=== PATIENT | male | born 1955 | race Caucasian/White ===

== ENCOUNTER 2017-07-31 06:15 | Emergency (ER) | payer BC ==
[~2017-07-31] VITALS: Ht 180.3 cm; Wt 86.2 kg
[~2017-07-31 06:15] MED LIST: ASPI81CH PO; ASPI81EC PO; ATEN100 PO; ATOR20 PO; Aspirin EC81 MG PO; BISA5EC PO; Bactrim Ds Tab1 EACH PO; CHOL10002 PO; CILO100 PO; CLOP75 PO; FOLI1 PO; GUAI600T33 PO; HYDACE5 PO; HYDMOR2 PO; HYDR1TAB94 PO; ONDA4 PO; OXYACE5T PO; POLY17UD PO; RXHYD5325 PO; THIA100 PO; XARELTO20 MG PO; [UNRECOGNIZED DRUG - CODE]; [UNRECOGNIZED DRUG - CODE] PO; [UNRECOGNIZED DRUG - CODE] PO
[2017-07-31 07:02] LABS: BASOPHILS ABSOLUTE AUTO 0.07 K/mm3 (0.00-0.23); BASOPHILS PERCENT AUTO 1 % (0-2); EOSINOPHILS ABSOLUTE AUTO 0.26 K/mm3 (0.00-0.68); EOSINOPHILS PERCENT AUTO 3 % (0-6); Hemoglobin 14.4 g/dL (13.5-17.5); IMMATURE GRAN ABSOLUTE AUTO 0.09 K/mm3 (0.00-0.10); IMMATURE GRAN PERCENT AUTO 1 % (0-1); LYMPHOCYTES ABSOLUTE AUTO 1.62 K/mm3 (0.84-5.20); LYMPHOCYTES PERCENT AUTO 18 % (21-46); MONOCYTES ABSOLUTE AUTO 0.59 K/mm3 (0.16-1.47); MONOCYTES PERCENT AUTO 7 % (4-13); Mean Corpuscular HGB 34.9 pg (26.0-34.0); Mean Corpuscular HGB Conc 34.3 g/dL (31.5-36.5); Mean Corpuscular Volume 102 fL (80-100); Mean Platelet Volume 8.4 fL (9.1-12.4); NEUTROPHILS ABSOLUTE AUTO 6.24 K/mm3 (1.96-9.15); NEUTROPHILS PERCENT AUTO 70 % (41-73); Platelet Count 317 K/mm3 (150-400); RDW Coefficient Variation 11.7 % (11.7-14.2); RDW Standard Deviation 43.9 fL (35.1-46.3); Red Blood Cell Count 4.13 M/mm3 (4.30-5.90); White Blood Cell Count 8.87 K/mm3 (4.00-11.30)
[2017-07-31 07:45] LABS: Ethanol (Alcohol), Blood, Med 165 mg/dL
[2017-07-31 07:47] LABS: Troponin I <0.015 ng/mL (0.000-0.040)
[2017-07-31 07:53] LABS: Alanine Aminotransfer (ALT/SGP 31 U/L (12-78); Albumin, Blood 3.4 g/dL (3.4-5.0); Albumin/Globulin Ratio 0.9 (0.8-1.8); Alk Phos 92 U/L (50-136); Anion Gap 10 mmol/L (6-16); Aspartate Aminotrans (AST/SGOT 29 U/L (12-37); Bilirubin, Total 0.4 mg/dL (0.1-1.0); Blood Urea Nitrogen 8 mg/dL (8-24); Bun/Creatinine Ratio 10.1 (12.0-20.0); CO2, Blood 25 mmol/L (21-32); Calcium, Blood 8.5 mg/dL (8.5-10.1); Chloride, Blood 100 mmol/L (98-108); Creatinine, Blood 0.79 mg/dL (0.60-1.20); Globulin, Blood 3.7 g/dL (2.2-4.0); Glomerular Filtration Rate >60 (60-); Glucose, Blood 107 mg/dL (70-99); Potassium, Blood 3.4 mmol/L (3.5-5.5); Sodium, Blood 135 mmol/L (136-145); Total Protein, Blood 7.1 g/dL (6.4-8.2)
[2018-01-26] MEDS ORDERED: TRAM50 (13:27)
[2018-06-29] MEDS ORDERED: ALEN70 PO (09:03)
[2018-06-29] MEDS ORDERED: CENTRUM SILVER1 EAC2 PO (09:04)
== END 2017-07-31 08:47 | disposition home or self-care (01) ==
LOC: ER 06:15
PROVIDERS: Emergency Medicine
DX: R07.9 Chest pain, unspecified (principal); F10.10 Alcohol abuse, uncomplicated; I25.2 Old myocardial infarction; E78.00 Pure hypercholesterolemia, unspecified; I48.92 Unspecified atrial flutter; Z90.49 Acquired absence of other specified parts of digestive tract; Z87.891 Personal history of nicotine dependence; Z79.82 Long term (current) use of aspirin; Z79.899 Other long term (current) drug therapy; Y90.6 Blood alcohol level of 120-199 mg/100 ml
CPT/HCPCS: 36415; 71046; 80053; 83690; 84484; 85025; 93005; 93010; 99284; G0480

== ENCOUNTER 2018-02-03 13:05 | Day surgery (SDC) | payer BC ==
[~2018-02-03] VITALS: Ht 180.3 cm; Wt 80.5 kg
[~2018-02-03 13:05] MED LIST changes: +TRAM50
== END 2018-02-03 15:06 | disposition home or self-care (01) ==
LOC: ORSCSDS 13:05
PROVIDERS: Internal Medicine Gastroenterology
PROC: 0DBN8ZX Excision of Sigmoid Colon, Via Natural or Artificial Opening Endoscopic, Diagnostic (ICD-10-PCS; principal; 2018-02-03 14:45)
PROC: 0DBH8ZX Excision of Cecum, Via Natural or Artificial Opening Endoscopic, Diagnostic (ICD-10-PCS; principal; 2018-02-03 14:45)
PROC: 0DBL8ZX Excision of Transverse Colon, Via Natural or Artificial Opening Endoscopic, Diagnostic (ICD-10-PCS; principal; 2018-02-03 14:45)
DX: Z12.11 Encounter for screening for malignant neoplasm of colon (principal); Z86.010 Personal history of colon polyps; D12.3 Benign neoplasm of transverse colon; D12.0 Benign neoplasm of cecum; K63.5 Polyp of colon; K57.30 Diverticulosis of large intestine without perforation or abscess without bleeding; I25.10 Atherosclerotic heart disease of native coronary artery without angina pectoris; I48.92 Unspecified atrial flutter; J44.9 Chronic obstructive pulmonary disease, unspecified; G47.33 Obstructive sleep apnea (adult) (pediatric); Z87.891 Personal history of nicotine dependence; Z79.82 Long term (current) use of aspirin; Z79.899 Other long term (current) drug therapy
CPT/HCPCS: 88305

== ENCOUNTER 2018-07-13 07:05 | Day surgery (SDC) | payer BC ==
[~2018-07-13] VITALS: Ht 180.3 cm; Wt 85.3 kg
[~2018-07-13 07:05] MED LIST changes: +ALEN70 PO; +CENTRUM SILVER1 EAC2 PO
--- NOTE | 2018-07-13 10:22 | NUR ---
INTO STEP VIA [facility]. ABDOMINAL DRESSING C/D/I. ABDOMINAL BINDER PLACED. PT REPORTS 3/10 INCISIONAL PAIN. SATS TRENDING 90-93%. ENCOURAGED COUGHING AND DEEP BREATHING-SATS TRENDING 93-95% ON RA. KHUSHBU INITIATED.
--- NOTE | 2018-07-13 11:09 | NUR ---
Patient up to Ambulate independently. Gait steady. Dressing to procedure site clean, dry, intact with no visible drainage, swelling, erythema or bruising noted. Discharge instructions reviewed with patient. Patient verbalizes understanding. Copy given to patient to take home. Discharged via wheelchair to private car for ride home.
== END 2018-07-13 11:10 | disposition home or self-care (01) ==
LOC: ORSCMMR 07:05 → ORD 08:45 → ORSCMMR 11:10
PROVIDERS: Surgery
PROC: 0WQF0ZZ Repair Abdominal Wall, Open Approach (ICD-10-PCS; principal; 2018-07-13 08:45)
DX: K42.9 Umbilical hernia without obstruction or gangrene (principal); I25.10 Atherosclerotic heart disease of native coronary artery without angina pectoris; Z79.82 Long term (current) use of aspirin
CPT/HCPCS: J0690; J1100; J1885; J2405; J2710; J3010; J7120

== ENCOUNTER 2019-04-07 12:18 | Observation (INO) | payer BC ==
[~2019-04-07] VITALS: Ht 180.3 cm; Wt 87.4 kg
[~2019-04-07 12:18] MED LIST changes: -AMOCLA875 PO; -Advil200 M1 PO; -VANCOMYCIN HCL1.5 GM IV
--- NOTE | 2019-04-07 17:24 | NUR ---
PT DIRECT ADMIT FROM [place]. A&O X4 AND INDEPENDENT FOR ADL'S. PRN NORCO ADMINISTERED FOR LEFT ARM PAIN D/T CELLULITIS. DENIES N/V. CALL LIGHT IN REACH.
[2019-04-08 05:36] LABS: BASOPHILS ABSOLUTE AUTO 0.06 K/mm3 (0.00-0.23); BASOPHILS PERCENT AUTO 0 % (0-2); EOSINOPHILS ABSOLUTE AUTO 0.21 K/mm3 (0.00-0.68); EOSINOPHILS PERCENT AUTO 1 % (0-6); Hematocrit 38.6 % (37.0-53.0); Hemoglobin 13.4 g/dL (13.5-17.5); IMMATURE GRAN ABSOLUTE AUTO 0.11 K/mm3 (0.00-0.10); IMMATURE GRAN PERCENT AUTO 1 % (0-1); LYMPHOCYTES PERCENT AUTO 8 % (21-46); MONOCYTES ABSOLUTE AUTO 1.21 K/mm3 (0.16-1.47); MONOCYTES PERCENT AUTO 8 % (4-13); Mean Corpuscular HGB 36.4 pg (26.0-34.0); Mean Corpuscular HGB Conc 34.7 g/dL (31.5-36.5); Mean Corpuscular Volume 105 fL (80-100); Mean Platelet Volume 9.3 fL (9.1-12.4); NEUTROPHILS ABSOLUTE AUTO 11.87 K/mm3 (1.96-9.15); NEUTROPHILS PERCENT AUTO 81 % (41-73); Platelet Count 225 K/mm3 (150-400); RDW Coefficient Variation 11.5 % (11.7-14.2); RDW Standard Deviation 44.1 fL (35.1-46.3); Red Blood Cell Count 3.68 M/mm3 (4.30-5.90); White Blood Cell Count 14.66 K/mm3 (4.00-11.30)
[2019-04-08 06:09] LABS: Alanine Aminotransfer (ALT/SGP 50 U/L (12-78); Albumin, Blood 2.9 g/dL (3.4-5.0); Albumin/Globulin Ratio 0.7 (0.8-1.8); Alk Phos 81 U/L (50-136); Anion Gap 7 mmol/L (6-16); Aspartate Aminotrans (AST/SGOT 24 U/L (12-37); Bilirubin, Total 0.9 mg/dL (0.1-1.0); Blood Urea Nitrogen 17 mg/dL (8-24); Bun/Creatinine Ratio 19.5 (12.0-20.0); CO2, Blood 23 mmol/L (21-32); Calcium, Blood 8.5 mg/dL (8.5-10.1); Chloride, Blood 101 mmol/L (98-108); Creatinine, Blood 0.87 mg/dL (0.60-1.20); Globulin, Blood 3.9 g/dL (2.2-4.0); Glomerular Filtration Rate >60 (60-); Glucose, Blood 99 mg/dL (70-99); Potassium, Blood 3.7 mmol/L (3.5-5.5); Sodium, Blood 131 mmol/L (136-145); Total Protein, Blood 6.8 g/dL (6.4-8.2)
--- NOTE | 2019-04-08 17:29 | NUR ---
PT A&O X4 AND INDEPENDENT FOR ADL'S. PT REFUSED SHOWER TODAY. LEFT ARM SWELLING/REDNESS DECREASED SINCE YESTERDAY. NOTED ELEVATED BP, PRN TORADOL ADMINISTERED FOR LEFT ARM PAIN AND BP DECREASED TO WNL. PT DENIES N/V. CALL LIGHT IN REACH.
--- NOTE | 2019-04-09 03:53 | NUR ---
SHIFT SUMMARY PT ARM SWELLING IS NOTED TO BE IMPROVED. PT REPORTS THE UNDERSIDE OF HIS ARM IS WHAT IS CAUSING DISCOMFORT. TORADOL CONTINUES TO REDUCE PAIN. PT HAD NO ISSUES OR EVENTS THIS SHIFT. PT CURRENTLY SLEEPING AND COMFORTABLE. PT HAS SLEPT BETTER THIS SHIFT. PT CURRENTLY SLEEPING AND BREATHING EASY. CALL LIGHT IN REACH.
[2019-04-09 06:29] LABS: BASOPHILS ABSOLUTE AUTO 0.06 K/mm3 (0.00-0.23); BASOPHILS PERCENT AUTO 1 % (0-2); EOSINOPHILS ABSOLUTE AUTO 0.24 K/mm3 (0.00-0.68); EOSINOPHILS PERCENT AUTO 2 % (0-6); Hematocrit 35.9 % (37.0-53.0); Hemoglobin 12.8 g/dL (13.5-17.5); IMMATURE GRAN ABSOLUTE AUTO 0.11 K/mm3 (0.00-0.10); IMMATURE GRAN PERCENT AUTO 1 % (0-1); LYMPHOCYTES ABSOLUTE AUTO 1.26 K/mm3 (0.84-5.20); LYMPHOCYTES PERCENT AUTO 10 % (21-46); MONOCYTES ABSOLUTE AUTO 1.09 K/mm3 (0.16-1.47); MONOCYTES PERCENT AUTO 9 % (4-13); Mean Corpuscular HGB 36.7 pg (26.0-34.0); Mean Corpuscular HGB Conc 35.7 g/dL (31.5-36.5); Mean Corpuscular Volume 103 fL (80-100); Mean Platelet Volume 9.4 fL (9.1-12.4); NEUTROPHILS ABSOLUTE AUTO 10.08 K/mm3 (1.96-9.15); NEUTROPHILS PERCENT AUTO 78 % (41-73); Platelet Count 248 K/mm3 (150-400); RDW Coefficient Variation 11.4 % (11.7-14.2); RDW Standard Deviation 42.8 fL (35.1-46.3); Red Blood Cell Count 3.49 M/mm3 (4.30-5.90); White Blood Cell Count 12.84 K/mm3 (4.00-11.30)
[2019-04-09 06:39] LABS: Anion Gap 7 mmol/L (6-16); Blood Urea Nitrogen 14 mg/dL (8-24); Bun/Creatinine Ratio 15.3 (12.0-20.0); CO2, Blood 23 mmol/L (21-32); Calcium, Blood 8.4 mg/dL (8.5-10.1); Chloride, Blood 103 mmol/L (98-108); Creatinine, Blood 0.92 mg/dL (0.60-1.20); Glomerular Filtration Rate >60 (60-); Glucose, Blood 103 mg/dL (70-99); Potassium, Blood 3.6 mmol/L (3.5-5.5); Sodium, Blood 133 mmol/L (136-145)
[2019-04-09] MEDS ORDERED: HYDR1TAB94 PO ×2 (09:12)
[2019-04-09] MEDS ORDERED: AMOCLA875 PO ×2 (09:13)
[2019-04-09] MEDS ORDERED: Advil200 M1 PO ×2 (09:13)
[2019-04-09] MEDS ORDERED: VANCOMYCIN HCL1.5 GM IV ×2 (09:15)
--- NOTE | 2019-04-09 12:17 | NUR ---
SHIFT SUMMARY PT IS A&O, INDEPENDENT IN RM TO BTHRM. ADMITTED FOR L ARM CELLULITIS; REEDNESS AND SWELLING MUCH IMPROVED. DR REICH IN TO SEE PT THIS AM. D/C ORDERS PLACED. PT TO GO TO [facility] FOR CONTINUED IV OUTPT ABX; FIRST 2 APPOINTMENTS MADE. LEAH POWER GLIDE LEFT IN; SL. ANDRES HOSE REMOVED AT D/C. PT REPORTED THAT PAIN WAS GONE IN L ARM, "JUST UNCOMFORTABLE NOW". DECLINED PAIN MEDICATION. REPORTED THAT IBPROFEN WOULD BE FINE. D/C INSTRUCTIONS GIVEN. PT VERBALIZED UNDERSTANDING. PT ASSISTED OUT FRONT, VIA W/C, TO SON WAITING.
== END 2019-04-09 10:54 | disposition home or self-care (01) ==
LOC: MEDS 12:18 → ENPENDDIS 04-09 08:30 → MEDS 04-09 10:54
PROVIDERS: ADMIT Family Medicine
DX: M70.22 Olecranon bursitis, left elbow (principal); I10 Essential (primary) hypertension; J44.9 Chronic obstructive pulmonary disease, unspecified; I25.10 Atherosclerotic heart disease of native coronary artery without angina pectoris; I73.9 Peripheral vascular disease, unspecified; E55.9 Vitamin D deficiency, unspecified; F17.200 Nicotine dependence, unspecified, uncomplicated; Z95.5 Presence of coronary angioplasty implant and graft; Z79.899 Other long term (current) drug therapy; Z79.82 Long term (current) use of aspirin
CPT/HCPCS: 36415; 80048; 80053; 80202; 85025; 87040; 93971; 94640; 94760; 96365; 96366; 96367; 96372; 96375; 96376; A9270-GY; C1751; G0378; J1650; J1885; J2543; J3370; J7040; J7050

== ENCOUNTER → 2019-04-07 | Outpatient (CLI) | payer BC ==
[~2019-04-07] MED LIST changes: +AMOCLA875 PO; +Advil200 M1 PO; +VANCOMYCIN HCL1.5 GM IV
[2019-04-07 09:56] LABS: BASOPHILS ABSOLUTE AUTO 0.05 K/mm3 (0.00-0.23); BASOPHILS PERCENT AUTO 0 % (0-2); EOSINOPHILS ABSOLUTE AUTO 0.12 K/mm3 (0.00-0.68); EOSINOPHILS PERCENT AUTO 1 % (0-6); Hematocrit 39.1 % (37.0-53.0); Hemoglobin 14.3 g/dL (13.5-17.5); IMMATURE GRAN ABSOLUTE AUTO 0.15 K/mm3 (0.00-0.10); IMMATURE GRAN PERCENT AUTO 1 % (0-1); LYMPHOCYTES ABSOLUTE AUTO 1.39 K/mm3 (0.84-5.20); LYMPHOCYTES PERCENT AUTO 7 % (21-46); MONOCYTES ABSOLUTE AUTO 1.62 K/mm3 (0.16-1.47); MONOCYTES PERCENT AUTO 8 % (4-13); Mean Corpuscular HGB 37.6 pg (26.0-34.0); Mean Corpuscular HGB Conc 36.6 g/dL (31.5-36.5); Mean Corpuscular Volume 103 fL (80-100); Mean Platelet Volume 11.2 fL (9.1-12.4); NEUTROPHILS ABSOLUTE AUTO 17.33 K/mm3 (1.96-9.15); NEUTROPHILS PERCENT AUTO 84 % (41-73); Platelet Count 249 K/mm3 (150-400); RDW Coefficient Variation 11.8 % (11.7-14.2); RDW Standard Deviation 43.9 fL (35.1-46.3); White Blood Cell Count 20.66 K/mm3 (4.00-11.30)
[2019-04-07 10:37] LABS: Alanine Aminotransfer (ALT/SGP 49 U/L (12-78); Albumin, Blood 3.2 g/dL (3.4-5.0); Albumin/Globulin Ratio 0.8 (0.8-1.8); Alk Phos 84 U/L (40-126); Anion Gap 12 mmol/L (6-16); Aspartate Aminotrans (AST/SGOT 22 U/L (12-37); Bilirubin, Total 1.1 mg/dL (0.1-1.0); Blood Urea Nitrogen 11 mg/dL (8-24); Bun/Creatinine Ratio 12.1 (12.0-20.0); CO2, Blood 21 mmol/L (21-32); Calcium, Blood 8.6 mg/dL (8.5-10.1); Chloride, Blood 96 mmol/L (98-108); Creatinine, Blood 0.91 mg/dL (0.60-1.20); Globulin, Blood 4.2 g/dL (2.2-4.0); Glomerular Filtration Rate >60 (60-); Glucose, Blood 108 mg/dL (70-99); Sodium, Blood 129 mmol/L (136-145); Total Protein, Blood 7.4 g/dL (6.4-8.2)
== END ==
LOC: LAB SHORT 09:48 → LAB EV 09:48
PROVIDERS: Emergency Medicine
DX: L03.114 Cellulitis of left upper limb (principal)
CPT/HCPCS: 80053; 85025; 87040

== ENCOUNTER 2019-04-10 00:25 | Day surgery (SDC) | payer BC ==
[~2019-04-10 00:25] MED LIST changes: +AMOCLA875 PO; +Advil200 M1 PO; +VANCOMYCIN HCL1.5 GM IV
== END 2019-04-10 17:47 | disposition home or self-care (01) ==
LOC: ATC 00:25
DX: M70.22 Olecranon bursitis, left elbow (principal); L03.114 Cellulitis of left upper limb; J44.9 Chronic obstructive pulmonary disease, unspecified; Z95.5 Presence of coronary angioplasty implant and graft; I25.10 Atherosclerotic heart disease of native coronary artery without angina pectoris; F17.200 Nicotine dependence, unspecified, uncomplicated; Z79.82 Long term (current) use of aspirin; Z79.899 Other long term (current) drug therapy
CPT/HCPCS: 96365; J3370; J7050

== ENCOUNTER 2019-04-11 00:34 | Day surgery (SDC) | payer BC ==
[2019-04-11 16:30] LABS: Creatinine, Blood 0.84 mg/dL (0.60-1.20); Vancomycin, Trough 5.5 ug/mL (5.0-10.0)
== END 2019-04-11 17:10 | disposition home or self-care (01) ==
LOC: ATC 00:34
PROVIDERS: Internal Medicine Gastroenterology
DX: M70.22 Olecranon bursitis, left elbow (principal); L03.114 Cellulitis of left upper limb; I10 Essential (primary) hypertension; J44.9 Chronic obstructive pulmonary disease, unspecified; I25.10 Atherosclerotic heart disease of native coronary artery without angina pectoris; I73.9 Peripheral vascular disease, unspecified; F17.200 Nicotine dependence, unspecified, uncomplicated; Z79.899 Other long term (current) drug therapy; Z79.82 Long term (current) use of aspirin
CPT/HCPCS: 80202; 82565; 96365; J3370; J7050

== ENCOUNTER 2019-04-12 07:55 | Day surgery (SDC) | payer BC | END 2019-04-12 16:32 | disposition home or self-care (01) | LOC: ATC 07:55 | DX: M70.22 Olecranon bursitis, left elbow (principal); I10 Essential (primary) hypertension; J44.9 Chronic obstructive pulmonary disease, unspecified; I25.10 Atherosclerotic heart disease of native coronary artery without angina pectoris; F17.200 Nicotine dependence, unspecified, uncomplicated; Z79.899 Other long term (current) drug therapy; Z79.82 Long term (current) use of aspirin | CPT/HCPCS: 96365; J3370 ==

== ENCOUNTER 2019-04-13 00:01 | Day surgery (SDC) | payer BC | END 2019-04-13 16:10 | disposition home or self-care (01) | LOC: ATC 00:01 | DX: M70.22 Olecranon bursitis, left elbow (principal); I10 Essential (primary) hypertension; J44.9 Chronic obstructive pulmonary disease, unspecified; I25.10 Atherosclerotic heart disease of native coronary artery without angina pectoris; F17.200 Nicotine dependence, unspecified, uncomplicated; Z79.899 Other long term (current) drug therapy; Z79.82 Long term (current) use of aspirin | CPT/HCPCS: 96365; J3370 ==

== ENCOUNTER 2019-04-14 | Day surgery (SDC) | payer BC ==
[2019-04-14 08:40] LABS: Vancomycin, Trough 10.2 ug/mL (5.0-10.0)
== END 2019-04-14 16:17 | disposition home or self-care (01) ==
LOC: ATC
PROVIDERS: Family Medicine
DX: M70.22 Olecranon bursitis, left elbow (principal); J44.9 Chronic obstructive pulmonary disease, unspecified; M10.9 Gout, unspecified; F17.200 Nicotine dependence, unspecified, uncomplicated; I25.10 Atherosclerotic heart disease of native coronary artery without angina pectoris; I10 Essential (primary) hypertension; Z79.82 Long term (current) use of aspirin; Z79.899 Other long term (current) drug therapy
CPT/HCPCS: 36415; 80202; 82565; 96365; J3370

== ENCOUNTER 2019-04-15 00:01 | Day surgery (SDC) | payer BC | END 2019-04-15 16:25 | disposition home or self-care (01) | LOC: ATC 00:01 | DX: M70.22 Olecranon bursitis, left elbow (principal); I10 Essential (primary) hypertension; I25.10 Atherosclerotic heart disease of native coronary artery without angina pectoris; I73.9 Peripheral vascular disease, unspecified; J44.9 Chronic obstructive pulmonary disease, unspecified; F17.200 Nicotine dependence, unspecified, uncomplicated; Z79.899 Other long term (current) drug therapy; Z79.82 Long term (current) use of aspirin | CPT/HCPCS: 96365; J3370 ==

== ENCOUNTER 2019-04-16 07:33 | Day surgery (SDC) | payer BC | END 2019-04-16 09:05 | disposition home or self-care (01) | LOC: ATC 07:33 | DX: M70.22 Olecranon bursitis, left elbow (principal); I25.10 Atherosclerotic heart disease of native coronary artery without angina pectoris; F17.200 Nicotine dependence, unspecified, uncomplicated; J44.9 Chronic obstructive pulmonary disease, unspecified; I10 Essential (primary) hypertension; M10.9 Gout, unspecified; M81.0 Age-related osteoporosis without current pathological fracture; Z79.82 Long term (current) use of aspirin; Z95.5 Presence of coronary angioplasty implant and graft; Z98.890 Other specified postprocedural states | CPT/HCPCS: 96365; J3370 ==

== ENCOUNTER 2019-04-17 00:56 | Day surgery (SDC) | payer BC | END 2019-04-17 16:19 | disposition home or self-care (01) | LOC: ATC 00:56 | DX: M70.22 Olecranon bursitis, left elbow (principal); I25.10 Atherosclerotic heart disease of native coronary artery without angina pectoris; I10 Essential (primary) hypertension; M10.9 Gout, unspecified; J44.9 Chronic obstructive pulmonary disease, unspecified; M81.0 Age-related osteoporosis without current pathological fracture; F17.200 Nicotine dependence, unspecified, uncomplicated; Z95.1 Presence of aortocoronary bypass graft; Z79.82 Long term (current) use of aspirin | CPT/HCPCS: 96365; J3370 ==

== ENCOUNTER 2019-04-18 00:58 | Day surgery (SDC) | payer BC ==
[2019-04-18 08:22] LABS: Creatinine, Blood 0.83 mg/dL (0.60-1.20); Vancomycin, Trough 14.1 ug/mL (5.0-10.0)
[2019-04-18 08:30] LABS: Creatinine, Blood 0.81 mg/dL (0.60-1.20); Vancomycin, Trough 13.9 ug/mL (5.0-10.0)
== END 2019-04-18 22:38 | disposition home or self-care (01) ==
LOC: ATC 00:58
PROVIDERS: Family Medicine
DX: M70.22 Olecranon bursitis, left elbow (principal); I25.10 Atherosclerotic heart disease of native coronary artery without angina pectoris; J44.9 Chronic obstructive pulmonary disease, unspecified; I10 Essential (primary) hypertension; M10.9 Gout, unspecified; M81.0 Age-related osteoporosis without current pathological fracture; F17.200 Nicotine dependence, unspecified, uncomplicated; Z95.5 Presence of coronary angioplasty implant and graft; Z79.82 Long term (current) use of aspirin
CPT/HCPCS: 80202; 82565; 96365; J3370

== ENCOUNTER 2019-04-19 00:39 | Day surgery (SDC) | payer BC | END 2019-04-19 16:06 | disposition home or self-care (01) | LOC: ATC 00:39 | DX: M70.22 Olecranon bursitis, left elbow (principal); I25.10 Atherosclerotic heart disease of native coronary artery without angina pectoris; J44.9 Chronic obstructive pulmonary disease, unspecified; I10 Essential (primary) hypertension; M10.9 Gout, unspecified; F17.200 Nicotine dependence, unspecified, uncomplicated; M81.0 Age-related osteoporosis without current pathological fracture; Z95.5 Presence of coronary angioplasty implant and graft; Z79.82 Long term (current) use of aspirin | CPT/HCPCS: 96365; J3370 ==

== ENCOUNTER 2019-04-20 00:04 | Day surgery (SDC) | payer BC ==
--- NOTE | 2019-04-20 07:47 | NUR ---
IV PRESENT ON RFA. DRESSING C/D/I. ORANGE CAPS IN PLACE. FLUSHED WNL.
== END 2019-04-20 16:35 | disposition home or self-care (01) ==
LOC: ATC 00:04
DX: M70.22 Olecranon bursitis, left elbow (principal); J44.9 Chronic obstructive pulmonary disease, unspecified; I25.10 Atherosclerotic heart disease of native coronary artery without angina pectoris; I10 Essential (primary) hypertension; M10.9 Gout, unspecified; M81.0 Age-related osteoporosis without current pathological fracture; F17.200 Nicotine dependence, unspecified, uncomplicated; Z95.5 Presence of coronary angioplasty implant and graft; Z79.82 Long term (current) use of aspirin
CPT/HCPCS: 96365; J3370

== ENCOUNTER 2019-04-21 00:36 | Day surgery (SDC) | payer BC ==
[2019-04-21 08:27] LABS: Creatinine, Blood 0.95 mg/dL (0.60-1.20); Vancomycin, Trough 15.2 ug/mL (5.0-10.0)
== END 2019-04-21 16:43 | disposition home or self-care (01) ==
LOC: ATC 00:36
PROVIDERS: Family Medicine
DX: M70.22 Olecranon bursitis, left elbow (principal); L03.114 Cellulitis of left upper limb; I10 Essential (primary) hypertension; J44.9 Chronic obstructive pulmonary disease, unspecified; I25.10 Atherosclerotic heart disease of native coronary artery without angina pectoris; F17.200 Nicotine dependence, unspecified, uncomplicated; Z95.5 Presence of coronary angioplasty implant and graft; Z79.899 Other long term (current) drug therapy; Z79.82 Long term (current) use of aspirin
CPT/HCPCS: 80202; 82565; 96365; 96367; J3370

== ENCOUNTER 2019-04-22 00:28 | Day surgery (SDC) | payer BC | END 2019-04-22 17:01 | disposition home or self-care (01) | LOC: ATC 00:28 | DX: M70.22 Olecranon bursitis, left elbow (principal); L03.114 Cellulitis of left upper limb; J44.9 Chronic obstructive pulmonary disease, unspecified; I25.10 Atherosclerotic heart disease of native coronary artery without angina pectoris; I73.9 Peripheral vascular disease, unspecified; F17.200 Nicotine dependence, unspecified, uncomplicated; Z79.899 Other long term (current) drug therapy; Z79.82 Long term (current) use of aspirin | CPT/HCPCS: 96365; J3370 ==

== ENCOUNTER 2019-04-23 07:07 | Day surgery (SDC) | payer BC | END 2019-04-23 15:45 | disposition home or self-care (01) | LOC: ATC 07:07 | DX: M70.22 Olecranon bursitis, left elbow (principal); J44.9 Chronic obstructive pulmonary disease, unspecified; I25.10 Atherosclerotic heart disease of native coronary artery without angina pectoris; I10 Essential (primary) hypertension; M10.9 Gout, unspecified; M81.0 Age-related osteoporosis without current pathological fracture; F17.200 Nicotine dependence, unspecified, uncomplicated; Z95.5 Presence of coronary angioplasty implant and graft; Z79.82 Long term (current) use of aspirin; Z79.899 Other long term (current) drug therapy | CPT/HCPCS: 96365; J3370 ==

== ENCOUNTER 2019-05-25 08:07 | Day surgery (SDC) | payer BC ==
[~2019-05-25] VITALS: Ht 182.9 cm; Wt 89.9 kg
== END 2019-05-25 10:05 | disposition home or self-care (01) ==
LOC: ORSCSDS 08:07
PROVIDERS: Internal Medicine Gastroenterology
PROC: 0DBN8ZX Excision of Sigmoid Colon, Via Natural or Artificial Opening Endoscopic, Diagnostic (ICD-10-PCS; principal; 2019-05-25 09:30)
DX: Z12.11 Encounter for screening for malignant neoplasm of colon (principal); Z86.010 Personal history of colon polyps; D12.5 Benign neoplasm of sigmoid colon; K57.30 Diverticulosis of large intestine without perforation or abscess without bleeding; I25.2 Old myocardial infarction; G47.33 Obstructive sleep apnea (adult) (pediatric); Z79.82 Long term (current) use of aspirin
CPT/HCPCS: 88305; J2704

== ENCOUNTER 2020-10-27 10:28 | Emergency (ER) | payer BC ==
[~2020-10-27] VITALS: Ht 180.3 cm; Wt 88.5 kg
[2020-10-27] MEDS ORDERED: XARELTO20 M1 PO (10:50)
[2020-10-27] MEDS ORDERED: CARVEDILOL6.25 MG PO (10:50)
[2020-10-27 11:15] LABS: BASOPHILS ABSOLUTE AUTO 0.05 K/mm3 (0.00-0.23); BASOPHILS PERCENT AUTO 1 % (0-2); EOSINOPHILS ABSOLUTE AUTO 0.23 K/mm3 (0.00-0.68); EOSINOPHILS PERCENT AUTO 4 % (0-6); Hematocrit 43.5 % (37.0-53.0); Hemoglobin 15.3 g/dL (13.5-17.5); IMMATURE GRAN ABSOLUTE AUTO 0.04 K/mm3 (0.00-0.10); IMMATURE GRAN PERCENT AUTO 1 % (0-1); LYMPHOCYTES ABSOLUTE AUTO 1.61 K/mm3 (0.84-5.20); LYMPHOCYTES PERCENT AUTO 26 % (21-46); MONOCYTES ABSOLUTE AUTO 0.41 K/mm3 (0.16-1.47); MONOCYTES PERCENT AUTO 7 % (4-13); Mean Corpuscular HGB 35.5 pg (26.0-34.0); Mean Corpuscular HGB Conc 35.2 g/dL (31.5-36.5); Mean Corpuscular Volume 101 fL (80-100); Mean Platelet Volume 9.3 fL (9.1-12.4); NEUTROPHILS ABSOLUTE AUTO 3.98 K/mm3 (1.96-9.15); NEUTROPHILS PERCENT AUTO 63 % (41-73); Platelet Count 190 K/mm3 (150-400); RDW Coefficient Variation 11.9 % (11.7-14.2); RDW Standard Deviation 44.1 fL (35.1-46.3); Red Blood Cell Count 4.31 M/mm3 (4.30-5.90); White Blood Cell Count 6.32 K/mm3 (4.00-11.30)
[2020-10-27 11:33] LABS: Alanine Aminotransfer (ALT/SGP 79 U/L (12-78); Albumin, Blood 3.6 g/dL (3.4-5.0); Alk Phos 75 U/L (50-136); Anion Gap 11 mmol/L (6-16); Aspartate Aminotrans (AST/SGOT 50 U/L (12-37); Bilirubin, Total 0.5 mg/dL (0.1-1.0); Blood Urea Nitrogen 10 mg/dL (8-24); CO2, Blood 20 mmol/L (21-32); Calcium, Blood 8.2 mg/dL (8.5-10.1); Chloride, Blood 107 mmol/L (98-108); Creatinine, Blood 0.83 mg/dL (0.60-1.20); Globulin, Blood 3.5 g/dL (2.2-4.0); Glomerular Filtration Rate >60 (60-); Glucose, Blood 128 mg/dL (70-99); Potassium, Blood 3.9 mmol/L (3.5-5.5); Sodium, Blood 138 mmol/L (136-145); Total Protein, Blood 7.1 g/dL (6.4-8.2); Troponin I <0.015 ng/mL (0.000-0.040)
== END 2020-10-27 14:55 | disposition home or self-care (01) ==
LOC: ER 10:28
PROVIDERS: Emergency Medicine
DX: R07.9 Chest pain, unspecified (principal); I25.2 Old myocardial infarction; I10 Essential (primary) hypertension; E78.00 Pure hypercholesterolemia, unspecified; Z79.899 Other long term (current) drug therapy; Z87.891 Personal history of nicotine dependence
CPT/HCPCS: 71045; 71275; 80053; 84484; 85025; 93005; 93010; 99285-25; Q9967

== ENCOUNTER 2020-11-20 11:08 | Day surgery (SDC) | payer BC ==
[~2020-11-20 11:08] MED LIST changes: +CARVEDILOL6.25 MG PO; +XARELTO20 M1 PO
[2020-11-20] MEDS ORDERED: Aspir 8181 MG PO (12:07)
--- NOTE | 2020-11-20 12:08 | NUR ---
PT IN PROCEDURE ROOM FOR CARDIOVERSION, 20G IV R AC W NS TKO, DR MEADE PRESENT FOR ANESTHESIA, DR MACIEL PRESENT, SHOCKED 200J X 1 SUCCESSFULLY, PT WAKING UP NOW AND [place] PROCEDURE WELL, MEDS/ALLERGIES REVIEWED W PT PRIOR WITH DR MEADE, DR MACIEL TO CALL W PLAN OF CARE
--- NOTE | 2020-11-20 13:01 | NUR ---
PT IV DC'D INTACT, PT DRESSED, CALLED, PT DC'D BY [place] W DRIVING PT HOME
== END 2020-11-20 22:57 | disposition home or self-care (01) ==
LOC: PRC 11:08 → MHTC 11:08 → PRC 22:57
DX: I48.92 Unspecified atrial flutter (principal); I48.91 Unspecified atrial fibrillation
CPT/HCPCS: 92960; 93005; 93010; J2704; J7030

== ENCOUNTER 2021-01-17 11:51 | Inpatient (IN) | payer BC, MEDICARE ==
[~2021-01-17] VITALS: Ht 182.9 cm; Wt 91.3 kg
[~2021-01-17 11:51] MED LIST changes: +Aspir 8181 MG PO
[2021-01-17] MEDS ORDERED: ATOR40TA PO (12:09)
[2021-01-17 12:30] LABS: BASOPHILS ABSOLUTE AUTO 0.07 K/mm3 (0.00-0.23); BASOPHILS PERCENT AUTO 1 % (0-2); EOSINOPHILS ABSOLUTE AUTO 0.21 K/mm3 (0.00-0.68); EOSINOPHILS PERCENT AUTO 2 % (0-6); Hematocrit 43.8 % (37.0-53.0); Hemoglobin 15.4 g/dL (13.5-17.5); IMMATURE GRAN ABSOLUTE AUTO 0.06 K/mm3 (0.00-0.10); IMMATURE GRAN PERCENT AUTO 1 % (0-1); LYMPHOCYTES ABSOLUTE AUTO 1.85 K/mm3 (0.84-5.20); LYMPHOCYTES PERCENT AUTO 19 % (21-46); MONOCYTES PERCENT AUTO 7 % (4-13); Mean Corpuscular HGB 35.9 pg (26.0-34.0); Mean Corpuscular HGB Conc 35.2 g/dL (31.5-36.5); Mean Corpuscular Volume 102 fL (80-100); Mean Platelet Volume 9.3 fL (9.1-12.4); NEUTROPHILS ABSOLUTE AUTO 6.86 K/mm3 (1.96-9.15); NEUTROPHILS PERCENT AUTO 70 % (41-73); Platelet Count 235 K/mm3 (150-400); RDW Coefficient Variation 11.7 % (11.7-14.2); RDW Standard Deviation 43.8 fL (35.1-46.3); Red Blood Cell Count 4.29 M/mm3 (4.30-5.90); White Blood Cell Count 9.75 K/mm3 (4.00-11.30)
[2021-01-17 12:51] LABS: Alanine Aminotransfer (ALT/SGP 62 U/L (12-78); Albumin, Blood 4.1 g/dL (3.4-5.0); Albumin/Globulin Ratio 1.1 (0.8-1.8); Alk Phos 80 U/L (50-136); Anion Gap 8 mmol/L (6-16); Aspartate Aminotrans (AST/SGOT 43 U/L (12-37); Bilirubin, Total 0.9 mg/dL (0.1-1.0); Blood Urea Nitrogen 11 mg/dL (8-24); Bun/Creatinine Ratio 13.1 (12.0-20.0); CO2, Blood 23 mmol/L (21-32); Calcium, Blood 8.9 mg/dL (8.5-10.1); Chloride, Blood 105 mmol/L (98-108); Creatinine, Blood 0.84 mg/dL (0.60-1.20); Globulin, Blood 3.6 g/dL (2.2-4.0); Glomerular Filtration Rate >60 (60-); Glucose, Blood 100 mg/dL (70-99); Potassium, Blood 4.5 mmol/L (3.5-5.5); Sodium, Blood 136 mmol/L (136-145); Total Protein, Blood 7.7 g/dL (6.4-8.2); Troponin I <0.015 ng/mL (0.000-0.040)
[2021-01-17] MEDS ORDERED: Chantix1 MG PO (16:12)
[2021-01-17 16:39] LABS: International Normalized Ratio 1.02
--- NOTE | 2021-01-17 17:45 | NUR ---
PATIENT IS ALERT AND ORIENTED AND COOPERATIVE WITH CARE. HE TRANSFERRED 1PA FROM THE WHEELCHAIR TO THE BED ON ADMIT. HE CAN MOVE HIS RIGHT EXTREMITITES AND HAS STRENGTH BUT LACKS CONTROL AND SENSATION. USES A URINAL SITTING IN BED. HE IS AND LIVES AT HOME WITH HIS . THE PATIENT SAID HE WILL ASK HIS TO BRING IN HIS ADVANCE DIRECTIVE. ON RA. NO C/O PAIN. WILL CONTINUE TO MONITOR
--- NOTE | 2021-01-18 04:37 | NUR ---
GRADER MARKER SUMMARY PT AAOX4 AND PLEASANT. STILL WITH SOME SLIGHT R SIDED DEFECITS. PT HAS FAIRLY GOOD STRENGTH BUT DOES HAVE SOME TROUBLE WITH FINE MOTOR MOVEMENTS OF HANDS/FINGERS ON THE R SIDE. PT TO HAVE MRI THIS AM, PT DOES REPORT HAVING MULTIPLE METAL RODS IN HIS BACK WELL AN ARITIFICIAL HIP. CONSULT FOR DR FIGUEROA HAS BEEN CALLED IN TO ANSWERING SERVICE. PERMISSIVE HTN UP TO [address] HUNT, PT SBP 170-180'S TONIGHT. WILL CONTINUE TO MONITOR.
[2021-01-18 05:19] LABS: BASOPHILS ABSOLUTE AUTO 0.05 K/mm3 (0.00-0.23); BASOPHILS PERCENT AUTO 1 % (0-2); EOSINOPHILS ABSOLUTE AUTO 0.23 K/mm3 (0.00-0.68); EOSINOPHILS PERCENT AUTO 3 % (0-6); Hemoglobin 13.9 g/dL (13.5-17.5); IMMATURE GRAN ABSOLUTE AUTO 0.05 K/mm3 (0.00-0.10); IMMATURE GRAN PERCENT AUTO 1 % (0-1); LYMPHOCYTES ABSOLUTE AUTO 1.98 K/mm3 (0.84-5.20); LYMPHOCYTES PERCENT AUTO 21 % (21-46); MONOCYTES ABSOLUTE AUTO 0.64 K/mm3 (0.16-1.47); MONOCYTES PERCENT AUTO 7 % (4-13); Mean Corpuscular HGB 35.5 pg (26.0-34.0); Mean Corpuscular HGB Conc 34.8 g/dL (31.5-36.5); Mean Corpuscular Volume 102 fL (80-100); Mean Platelet Volume 9.3 fL (9.1-12.4); NEUTROPHILS ABSOLUTE AUTO 6.41 K/mm3 (1.96-9.15); NEUTROPHILS PERCENT AUTO 69 % (41-73); Platelet Count 191 K/mm3 (150-400); RDW Coefficient Variation 11.6 % (11.7-14.2); RDW Standard Deviation 43.5 fL (35.1-46.3); Red Blood Cell Count 3.91 M/mm3 (4.30-5.90); White Blood Cell Count 9.36 K/mm3 (4.00-11.30)
[2021-01-18 06:46] LABS: Anion Gap 8 mmol/L (6-16); Blood Urea Nitrogen 13 mg/dL (8-24); Bun/Creatinine Ratio 14.2 (12.0-20.0); CO2, Blood 24 mmol/L (21-32); Calcium, Blood 8.2 mg/dL (8.5-10.1); Chloride, Blood 101 mmol/L (98-108); Cholesterol 110 mg/dL (50-200); Creatinine, Blood 0.92 mg/dL (0.60-1.20); Glomerular Filtration Rate >60 (60-); Glucose, Blood 135 mg/dL (70-99); Potassium, Blood 3.7 mmol/L (3.5-5.5); Sodium, Blood 133 mmol/L (136-145); Triglycerides 137 mg/dL (30-160); Very Low Density Lipoprot Chol 27 mg/dL (6-32)
[2021-01-18 07:10] LABS: CHOL/HDL RATIO 2.6; HDL Cholesterol 43 mg/dL (>39); LDL/HDL RATIO 0.9; Low Density Lipoprotein Chol 40 mg/dL (0-110)
--- NOTE | 2021-01-18 14:35 | NUR ---
ADMIT: 01/17/21 DISCHARGE: DX: CVA CC: [email or web address] LADARIUS CALL: RESIDENCE: home with spouse CAREGIVER: Lizeth, Spouse / Partner, DX: COPD, CAD, carotid artery stenosis, PVD, see list DME: none CCM: none HOME HEALTH: none SUMMARY: 01/18/21- per chart review with Dr. Bautista, Dr. Burgos to see pt and possible do carotid surgery prior to d/c. PT and OT saw the pt today and both are recommending IRU placement. No plan for d/c at this time. -nii
--- NOTE | 2021-01-18 16:15 | NUR ---
PATIENT IS ALERT AND ORIENTED. HE WORKED WITH PT/OT TODAY. PATIENT HAS BEEN EXERCISING IN BED ON HIS OWN THROUGHOUT THE DAY. PATIENT HAS BEEN NPO TODAY INCASE DR. FIGUEROA DECIDES TO TAKE HIM FOR A PROCEDURE. NO C/O PAIN. HIS BP IS 152/101 AT 16:00. WILL CONTINUE TO MONITOR
--- NOTE | 2021-01-19 05:28 | NUR ---
CERAMICS MACHINE OPERATOR SUMMARY PT AAOX4 AND PLEASANT. STRENGTH IMPROVED ON R SIDE, PT ABLE TO AMBULATE WITH FWW WITH A STANDBY ASSIST. BP BETTER CONTROLLED TONIGHT WITH SBP 130-140'S. POSSIBLE DC LATER TODAY. VSS, WILL CONTINUE TO MONITOR.
[2021-01-19] MEDS ORDERED: CLOP75 PO (12:14)
--- NOTE | 2021-01-19 13:12 | NUR ---
01/19/21- per chart review with Dr. Bautista, pt is stable to discharge and he would like to go home with home health even though PT and OT are recommending either SNF or IRU. Met with pt and he reports that prior to coming into the hospital, he was independent with no caregivers or home health. Pt lives at home with his and his daughter and grandkids will be coming up this week to stay for a little bit. Pt lives in a single story home with working utilities. There is 1-step to get into the home and 1-step to get into the kitchen. He has not concerns using the stairs. Pt states that he was driving until he came into the hospital and plans to continue to drive once he feels comfortable. Pt does have POA and he will bring a copy into [facility] for his chart. Pt has no DME needs at this time. Pt's pharmacy is [facility] on [address]. Pt states that his neighbor is going to pick him up and take him home. Reviewed LADARIUS and pt acknowledged understanding. Pt would like to use [facility] for therapy services. Informed Cecille with [facility]. -nii
--- NOTE | 2021-01-19 14:05 | NUR ---
PT DISCHARGE TO HOME WITH HOME HEALTH. IV DC'D. PACKETS GIVEN TO PT AND INSTRUCTED ABOUT STROKE AND NEW MEDICATION. PT WILL FU TO PCP [facility] WITHIN A WEEK AND WILL FU TO DR FIGUEROA WITHIN 4-6 WEEKS. NO OTHER CONCERNS NOTED. PT EDUCATED ABOUT STROKE PREVENTION AND HEALTHY EATING WITH REHABILATION AT HOME. PT ALSO GIVEN PACKET ABOUT FALL PREVENTION AT HOME
== END 2021-01-19 14:06 | disposition home health service (06) | DRG 65 ==
LOC: ER 11:51 → ERHOLD 11:52 → MEDS 15:49 → ERHOLD 15:50 → MEDS 16:36 → ENPENDDIS 01-19 12:39 → MEDS 01-19 14:06
PROVIDERS: Emergency Medicine; Physician Assistant; ADMIT Internal Medicine
DX: I63.81 Other cerebral infarction due to occlusion or stenosis of small artery (principal); G81.01 Flaccid hemiplegia affecting right dominant side; I10 Essential (primary) hypertension; J44.9 Chronic obstructive pulmonary disease, unspecified; I25.10 Atherosclerotic heart disease of native coronary artery without angina pectoris; F10.10 Alcohol abuse, uncomplicated; Z96.641 Presence of right artificial hip joint; I65.22 Occlusion and stenosis of left carotid artery; R91.1 Solitary pulmonary nodule; I73.9 Peripheral vascular disease, unspecified; I25.2 Old myocardial infarction; Z87.891 Personal history of nicotine dependence; Z90.49 Acquired absence of other specified parts of digestive tract; Z79.82 Long term (current) use of aspirin; Z79.899 Other long term (current) drug therapy; Z79.01 Long term (current) use of anticoagulants; Z95.5 Presence of coronary angioplasty implant and graft; Z95.820 Peripheral vascular angioplasty status with implants and grafts; Z98.1 Arthrodesis status; Z71.3 Dietary counseling and surveillance; Z71.6 Tobacco abuse counseling; Z71.41 Alcohol abuse counseling and surveillance of alcoholic
CPT/HCPCS: 36415; 70450; 70496; 70498; 70551; 71046; 80048; 80053; 80061; 83036; 84484; 85025; 85610; 85730; 93005; 93010; 93880; 97110; 97112; 97116; 97162; 97166; 97530; 99285-25; A9270; Q9967

== ENCOUNTER 2021-05-30 08:36 | Observation (INO) | payer BC, MEDICARE ==
[~2021-05-30] VITALS: Ht 177 cm; Wt 91.3 kg
[~2021-05-30 08:36] MED LIST changes: +ATOR40TA PO; +CARV6.25 PO; +Chantix1 MG PO
--- NOTE | 2021-05-30 12:47 | NUR ---
PT ARRIVED BACK TO RECOVERY ROOM IN BED. RIGHT FEMORAL GROIN SITE SOFT NON-TENDER WITH NO HEMATOMA AND NO PULSATILE BLEEDING. PT DENIES CP. CALL LIGHT IN REACH.
--- NOTE | 2021-05-30 18:34 | NUR ---
PT ARRIVED THIS AFTERNOON POST RECOVERY FROM [facility] POST STENT PALCEMENT OF THE INNOMINATE ARTERY AND BALLOONING OF THE LT FEMORAL ARTERY. NO ACTIVE BLEEDING NOTED TO GROIN SITE WHICH HAS BEEN FULLY RECOVERED IN [facility]. DENIES CP OR SOB, VSS. PT TO BE D/C IN THE AM
--- NOTE | 2021-05-31 05:45 | NUR ---
SHIFT SUMMARY PT ALERT AND ORIENTED X4. RIGHT GROIN SITE C/D/I. 09/20 PAIN RELIEVED PER TYLENOL. HIGH BLOOD PRESSURE TO START SHIFT. RELIEVED PER X1 DOSE OF AMLODIPINE. HR 70'S NSR. O2 SATS OVER 90% ON RA. INDEPENDENT FOR ADLS, WALKS TO BATHROOM ON HIS OWN. IN BED SLEEPING WITH CALL ALARM AT SIDE
== END 2021-05-31 14:26 | disposition home or self-care (01) ==
LOC: MHTC 08:36 → PCU 15:46
PROVIDERS: ADMIT Radiology Diagnostic Radiology
DX: I70.8 Atherosclerosis of other arteries (principal); I70.203 Unspecified atherosclerosis of native arteries of extremities, bilateral legs; I65.22 Occlusion and stenosis of left carotid artery; I48.91 Unspecified atrial fibrillation; I10 Essential (primary) hypertension; I25.10 Atherosclerotic heart disease of native coronary artery without angina pectoris; Z95.5 Presence of coronary angioplasty implant and graft; Z79.82 Long term (current) use of aspirin; Z79.899 Other long term (current) drug therapy
CPT/HCPCS: 76937; 99152; 99153; A9270; C1725; C1760; C1769; C1876; C1887; C1894; G0378; J1644; J2060; J2250; J3010; J7030; J7050; Q9967

== ENCOUNTER 2022-05-29 11:33 | Day surgery (SDC) | payer BC ==
[~2022-05-29] VITALS: Ht 182.9 cm; Wt 85.6 kg
[~2022-05-29 11:33] MED LIST changes: +ALIMTA IV; +Acetaminophen650 M1 PO; +IBUP600 PO; +LIDO700A20 TOP; +LOSA50 PO; +Norco 5-325 Ta1 EACH PO; +PARAPLATIN; +ROXICODONE5 MG PO; +VITAMIN B125000 MC1 PO
--- NOTE | 2022-05-29 12:25 | NUR ---
05/29/22 1225 Mirlande Dumont THREE ATTEMPTS AT IV. FIRST ATTEMPT AT IV BY MA IN LEFT HAND INFILITRATED. SECOND ATTEMPT IN RIGHT AC BY MA MISSED. THIRD ATTEMPT AT IV BY MA IN LEFT HAND SUCCESSFUL.
== END 2022-05-29 14:21 | disposition home or self-care (01) ==
LOC: ORSCSDS 11:33
PROVIDERS: Internal Medicine Gastroenterology
PROC: 0DBL8ZX Excision of Transverse Colon, Via Natural or Artificial Opening Endoscopic, Diagnostic (ICD-10-PCS; principal; 2022-05-29 13:00)
PROC: 0DBN8ZX Excision of Sigmoid Colon, Via Natural or Artificial Opening Endoscopic, Diagnostic (ICD-10-PCS; principal; 2022-05-29 13:00)
DX: D64.9 Anemia, unspecified (principal); Z86.010 Personal history of colon polyps; D12.3 Benign neoplasm of transverse colon; D12.5 Benign neoplasm of sigmoid colon; Z86.73 Personal history of transient ischemic attack (TIA), and cerebral infarction without residual deficits; K57.30 Diverticulosis of large intestine without perforation or abscess without bleeding; I10 Essential (primary) hypertension; I25.2 Old myocardial infarction; Z87.891 Personal history of nicotine dependence; E78.00 Pure hypercholesterolemia, unspecified; J44.9 Chronic obstructive pulmonary disease, unspecified; Z85.118 Personal history of other malignant neoplasm of bronchus and lung
CPT/HCPCS: 88305; J2250; J2704; J7120

== ENCOUNTER → 2022-09-11 | Outpatient (CLI) | payer BC ==
[2022-09-11 13:09] LABS: BASOPHILS ABSOLUTE AUTO 0.04 K/mm3 (0.00-0.23); BASOPHILS PERCENT AUTO 1 % (0-2); EOSINOPHILS ABSOLUTE AUTO 0.21 K/mm3 (0.00-0.68); EOSINOPHILS PERCENT AUTO 3 % (0-6); Hematocrit 31.9 % (37.0-53.0); Hemoglobin 11.6 g/dL (13.5-17.5); IMMATURE GRAN ABSOLUTE AUTO 0.06 K/mm3 (0.00-0.10); IMMATURE GRAN PERCENT AUTO 1 % (0-1); LYMPHOCYTES ABSOLUTE AUTO 1.63 K/mm3 (0.84-5.20); LYMPHOCYTES PERCENT AUTO 20 % (21-46); MONOCYTES ABSOLUTE AUTO 0.66 K/mm3 (0.16-1.47); MONOCYTES PERCENT AUTO 8 % (4-13); Mean Corpuscular HGB 38.7 pg (26.0-34.0); Mean Corpuscular HGB Conc 36.4 g/dL (31.5-36.5); Mean Corpuscular Volume 106 fL (80-100); Mean Platelet Volume 9.1 fL (9.1-12.4); NEUTROPHILS ABSOLUTE AUTO 5.59 K/mm3 (1.96-9.15); NEUTROPHILS PERCENT AUTO 68 % (41-73); Platelet Count 186 K/mm3 (150-400); RDW Coefficient Variation 12.4 % (11.7-14.2); RDW Standard Deviation 48.3 fL (35.1-46.3); White Blood Cell Count 8.19 K/mm3 (4.00-11.30)
== END | disposition home or self-care (01) ==
LOC: LAB SHORT 12:00 → LAB 12:00
PROVIDERS: Internal Medicine Hematology & Oncology
DX: C34.90 Malignant neoplasm of unspecified part of unspecified bronchus or lung (principal)
CPT/HCPCS: 85025

== ENCOUNTER 2024-05-19 07:17 | Emergency (ER) | payer OTHER ==
[~2024-05-19] VITALS: Ht 180.3 cm; Wt 88.5 kg
[2024-05-19] MEDS ORDERED: OxyCODONE 7.5 mg/Acetam 325 mg TABLET PO ONE ×2 (07:40→11:40)
[2024-05-19] MEDS ORDERED: Ondansetron HCl 2 MG / ML 2ML Vial IV ONE (08:35)
[2024-05-19] MEDS ORDERED: FentaNYL Citrate 50 MCG/ML 2 ML Injection IV ONE (08:35)
[2024-05-19] MEDS ORDERED: DOC250 PO (10:48)
[2024-05-19] MEDS ORDERED: ONDA4ODT MM (10:48)
[2024-05-19] MEDS ORDERED: OXYACE7.5T PO (10:48)
[2024-05-19] MEDS ORDERED: Cyclobenzaprine HCl 10 MG Tab PO ONE (12:00)
[2024-05-19] MEDS ORDERED: CYCL10 PO (12:51)
[2024-05-19 13:30] VITALS: BP 128/69
== END 2024-05-19 14:00 | disposition home or self-care (01) ==
LOC: ER 07:17
DX: S32.591A Other specified fracture of right pubis, initial encounter for closed fracture (principal); I10 Essential (primary) hypertension; E78.5 Hyperlipidemia, unspecified; I48.91 Unspecified atrial fibrillation; W01.0XXA Fall on same level from slipping, tripping and stumbling without subsequent striking against object, initial encounter; Z87.891 Personal history of nicotine dependence; Z79.82 Long term (current) use of aspirin; Z79.02 Long term (current) use of antithrombotics/antiplatelets; Z79.899 Other long term (current) drug therapy
CPT/HCPCS: 72192; 73502; 96374; 96375; 99284-25; A9270; J2405; J3010

== ENCOUNTER 2024-06-25 00:33 | Inpatient (IN) | payer OTHER ==
[~2024-06-25] VITALS: Ht 180.3 cm; Wt 98.7 kg
[~2024-06-25 00:33] MED LIST changes: +CYCL10 PO; +DOC250 PO; +ONDA4ODT MM; +OXYACE7.5T PO
[2024-06-25 01:22] LABS: BASOPHILS ABSOLUTE AUTO 0.05 K/mm3 (0.00-0.23); BASOPHILS PERCENT AUTO 0 % (0-2); EOSINOPHILS ABSOLUTE AUTO 0.35 K/mm3 (0.00-0.68); EOSINOPHILS PERCENT AUTO 3 % (0-6); Hematocrit 35.5 % (37.0-53.0); Hemoglobin 12.8 g/dL (13.5-17.5); IMMATURE GRAN ABSOLUTE AUTO 0.08 K/mm3 (0.00-0.10); IMMATURE GRAN PERCENT AUTO 1 % (0-1); LYMPHOCYTES ABSOLUTE AUTO 1.64 K/mm3 (0.84-5.20); LYMPHOCYTES PERCENT AUTO 12 % (21-46); MONOCYTES ABSOLUTE AUTO 1.24 K/mm3 (0.16-1.47); MONOCYTES PERCENT AUTO 9 % (4-13); Mean Corpuscular HGB 37.4 pg (26.0-34.0); Mean Corpuscular HGB Conc 36.1 g/dL (31.5-36.5); Mean Corpuscular Volume 104 fL (80-100); Mean Platelet Volume 8.9 fL (9.1-12.4); NEUTROPHILS ABSOLUTE AUTO 10.18 K/mm3 (1.96-9.15); NEUTROPHILS PERCENT AUTO 75 % (41-73); Platelet Count 240 K/mm3 (150-400); RDW Coefficient Variation 12.3 % (11.7-14.2); RDW Standard Deviation 47.4 fL (35.1-46.3); Red Blood Cell Count 3.42 M/mm3 (4.30-5.90); White Blood Cell Count 13.54 K/mm3 (4.00-11.30)
[2024-06-25 01:29] LABS: Base Excess Venous -4.3 mmol/L; Bicarbonate Venous 21.4 mmol/L (24.0-30.0); PCO2 Venous 34.8 mmHg (38-42); pH Blood Venous 7.38 (7.34-7.37)
[2024-06-25] MEDS ORDERED: Azithromycin 500 MG in NS 250 ML IV ONE (01:35)
[2024-06-25] MEDS ORDERED: CefTRIAXone 1000 MG Vial IM ONE (01:40)
[2024-06-25 01:43] LABS: Albumin, Blood 3.9 g/dL (3.4-5.0); Albumin/Globulin Ratio 1.1 (0.8-1.8); Bilirubin, Total 1.2 mg/dL (0.1-1.0); Calcium, Blood 9.5 mg/dL (8.5-10.1); Creatinine, Blood 1.08 mg/dL (0.60-1.20); Globulin, Blood 3.5 g/dL (2.2-4.0); Potassium, Blood 4.1 mmol/L (3.5-5.5); Thyroid Stimulating Hormone 3.51 uIU/mL (0.360-4.800); Total Protein, Blood 7.4 g/dL (6.4-8.2)
[2024-06-25 01:51] LABS: Prothrombin Time Results 10.7 Sec (9.7-11.5)
[2024-06-25 02:29] LABS: Influenza A, PCR NEGATIVE (NEGATIVE); Influenza B, PCR NEGATIVE (NEGATIVE); Resp Syncytial Virus, PCR NEGATIVE (NEGATIVE); SARS-Cov-2 (COVID-19) PCR, MMC NEGATIVE (NEGATIVE)
[2024-06-25] MEDS ORDERED: CefTRIAXone Sodium 1,000 MG in NS 100 ML IV ONE (02:55)
[2024-06-25] MEDS ORDERED: Aspirin 81 MG Chew PO ONE (03:20)
[2024-06-25] MEDS ORDERED: Ipratropium/Albuterol SulF 2.5-0.5MG/3 ML Amp INH SCH (04:35)
[2024-06-25] MEDS ORDERED: Albuterol 2.5 MG/3 ML VIAL INH PRN (04:35)
[2024-06-25] MEDS ORDERED: Magnesium Sulf 2 GM/Water 50ML 50 ML IV ONE (05:20)
[2024-06-25] MEDS ORDERED: Mometasone/Formoterol MDI 200/5 mcg 13 GM INH SCH (05:45)
[2024-06-25] MEDS ORDERED: Furosemide 10 MG/ML 4ML Vial IV SCH (07:00)
[2024-06-25] MEDS ORDERED: MethylPREDNISolone Sod Succ 125 MG Vial IV SCH (07:00)
[2024-06-25] MEDS ORDERED: Lactobacil 2-S.Thermo-Bifido 1 1 Cap PO SCH (09:00)
[2024-06-25] MEDS ORDERED: Famotidine 10 MG/ML 2ML Vial IV SCH (09:00)
[2024-06-25 10:15] VITALS: BP 137/87
--- NOTE | 2024-06-25 10:15 | NUR ---
PT TO ICU ROOM 7 VIA GURNEY WITH RT AND PCT. PT ON BIPAP WITH SETTINGS OF 16/10 AND 3LPM O2. PT ABLE TO SPEAK IN FULL SENTENCES, AND AMBULATE TO ICU BED WITHOUT DIFFICULTY. CONTINOUS CARDIAC MONITORING IN PLACE SHOWS A FLUTTER, HR 100'S-110'S. BP STABLE. 2+ PITTING EDEMA TO BLE'S NOTED. NO ACUTE NEEDS IDENTIFED AT THIS TIME. SEE ADMIT ASSESSMENT FOR FULL DETAILS.
--- NOTE | 2024-06-25 11:11 | NUR ---
UPDATED VIA PHONE CALL re: PATIENT STATUS, PLAN OF CARE.
[2024-06-25 11:15] LABS: Base Excess Venous -3.1 mmol/L; Bicarbonate Venous 22.3 mmol/L (24.0-30.0); PCO2 Venous 32.4 mmHg (38-42); pH Blood Venous 7.43 (7.34-7.37)
[2024-06-25] MEDS ORDERED: LOSA50 PO (11:26)
[2024-06-25] MEDS ORDERED: CILO100 PO (11:28)
[2024-06-25] MEDS ORDERED: [UNRECOGNIZED DRUG - OTHER] (11:30)
[2024-06-25] MEDS ORDERED: TIOT18 (11:30)
[2024-06-25 12:00] VITALS: BP 152/81
[2024-06-25] MEDS ORDERED: Carvedilol 6.25 MG Tab PO SCH (13:05)
[2024-06-25] MEDS ORDERED: Metoprolol Succinate 50 MG TABCR PO SCH (14:15)
[2024-06-25] MEDS ORDERED: Digoxin 0.25 MG/ML 2ML Amp IV ONE (14:15)
[2024-06-25 16:00] VITALS: BP 144/87
--- NOTE | 2024-06-25 18:23 | NUR ---
SUMMARY: I assumed care of this patient at 1700. Pt is alert; He tolerated his dinner with no issues. Accurate pulse ox saturation has been difficult to obtain. When pleth is consistant SpO2 is greater than 90%. On monitor, heart rate appears to be atrial flutter in the 70s.
[2024-06-25 20:00] VITALS: BP 139/73
[2024-06-25] MEDS ORDERED: Digoxin 0.25 MG/ML 2ML Amp IV SCH (20:30)
[2024-06-25 21:00] VITALS: BP 137/73
[2024-06-25] MEDS ORDERED: Apixaban 5 MG Tab PO SCH (21:00)
[2024-06-25] MEDS ORDERED: Cilostazol 50 MG Tab PO SCH (21:00)
[2024-06-26] VITALS: BP 159/89
[2024-06-26] MEDS ORDERED: Azithromycin 500 MG in NS 250 ML IV ONE (01:00)
--- NOTE | 2024-06-26 01:44 | NUR ---
UPDATE TRANSFERED TO U REPORT GIVING TO IVETH WEISS @ 4227
--- NOTE | 2024-06-26 01:53 | NUR ---
ASSUMPTION OF CARE. PT TRANSFERED TO PCU 18 AT APPROXIMATELY 0145. PT AO X 4. PT IN A FLUTTER RANGING FROM A RATE OF 70-140 SUSTAINING 70-80'S. AMIO GTT GOING AT 0.5. WILL CONTINUE PLAN OF CARE.
[2024-06-26 01:55] VITALS: BP 162/88
[2024-06-26 04:00] VITALS: BP 151/97
--- NOTE | 2024-06-26 05:32 | NUR ---
SHIFT SUMMARY PT RESTING COMFORTABLY IN BED WITH CPAP ON FOR MAJORITY OF THE NIGHT. PT DENIES ANY PAIN. AMIO GTT GOING AT 0.5. NO OTHER ACUTE EVENTS OVER NIGHT.
[2024-06-26] MEDS ORDERED: CefTRIAXone Sodium 1,000 MG in NS 100 ML IV SCH (06:00)
[2024-06-26] MEDS ORDERED: Azithromycin 500 MG in NS 250 ML IV SCH (06:00)
[2024-06-26 06:15] LABS: BASOPHILS ABSOLUTE AUTO 0.02 K/mm3 (0.00-0.23); BASOPHILS PERCENT AUTO 0 % (0-2); EOSINOPHILS PERCENT AUTO 0 % (0-6); Hematocrit 31.3 % (37.0-53.0); Hemoglobin 11.2 g/dL (13.5-17.5); IMMATURE GRAN PERCENT AUTO 1 % (0-1); LYMPHOCYTES ABSOLUTE AUTO 0.63 K/mm3 (0.84-5.20); LYMPHOCYTES PERCENT AUTO 5 % (21-46); MONOCYTES ABSOLUTE AUTO 0.46 K/mm3 (0.16-1.47); MONOCYTES PERCENT AUTO 4 % (4-13); Mean Corpuscular HGB 37.3 pg (26.0-34.0); Mean Corpuscular HGB Conc 35.8 g/dL (31.5-36.5); Mean Corpuscular Volume 104 fL (80-100); Mean Platelet Volume 9.5 fL (9.1-12.4); NEUTROPHILS PERCENT AUTO 91 % (41-73); Platelet Count 196 K/mm3 (150-400); RDW Coefficient Variation 12.2 % (11.7-14.2); RDW Standard Deviation 46.4 fL (35.1-46.3); White Blood Cell Count 13.01 K/mm3 (4.00-11.30)
[2024-06-26 06:41] LABS: Albumin, Blood 3.5 g/dL (3.4-5.0); Albumin/Globulin Ratio 1.1 (0.8-1.8); Bilirubin, Total 0.7 mg/dL (0.1-1.0); Bun/Creatinine Ratio 21.8 (12.0-20.0); Calcium, Blood 9.1 mg/dL (8.5-10.1); Creatinine, Blood 1.01 mg/dL (0.60-1.20); Globulin, Blood 3.3 g/dL (2.2-4.0); Potassium, Blood 3.8 mmol/L (3.5-5.5); Total Protein, Blood 6.8 g/dL (6.4-8.2)
[2024-06-26 08:58] VITALS: BP 128/81
[2024-06-26] MEDS ORDERED: Losartan Potassium 50 MG Tab PO SCH (09:00)
[2024-06-26] MEDS ORDERED: Enoxaparin 40 MG/0.4 ML SYR SC SCH (09:00)
[2024-06-26 12:29] VITALS: BP 105/76
[2024-06-26] MEDS ORDERED: ELIQUIS5 M2 PO (14:06)
[2024-06-26] MEDS ORDERED: IPRAT-ALBUT 0.5-3 ML INH (14:08)
[2024-06-26] MEDS ORDERED: METO50ER PO (14:09)
[2024-06-26] MEDS ORDERED: ATOR20 PO (14:10)
[2024-06-26] MEDS ORDERED: CEFD300 PO (14:10)
[2024-06-26] MEDS ORDERED: PRED20 PO (14:11)
[2024-06-26] MEDS ORDERED: FURO20 PO (14:22)
--- NOTE | 2024-06-26 15:40 | NUR ---
DISCHARGE SUMMARY PT ALERT, ORIENTED; CALM AND COOPERATIVE WITH CARE. BASELINE TREMORS NOTED. PT DENIES PAIN, CHEST PAIN/PRESSURE, NAUSEA, DIZZINESS AND NUMB/TINGLING. TELE AFLUTTER 70-90'S, BP STABLE. S[P2 >90% ON RA, REPORTS SOB WITH ACTIVITY. PT UP WALKIN HALLS PRIOR TO DISCHARGE, HR 110-120, OCCASIONALL TOUCH 130, TRENDING DOWN 80-90'S AT REST, SPO2 91% POST WALK, TRENDED UP TO 96% AT REST. ABD DISTENDED, NORMAL FOR PATIENT, NONTENDER, +BT. EDEMA TO BLE 1+, PT REPORTS SIGNIFICANT IMPROVEMENT. OTHER VSS. PT EDUCATED ON DISCHARGE INSTRUCTIONS, FOLLOW UP APPOINTMENTS, PRESCRIPTIONS, FLUID RESTRICTIONS AND FALL RISKS. PT LEFT VIA WHEELCHAIR AT APPROX 1455.
[2024-06-26] MEDS ORDERED: Metoprolol Succinate 50 MG TABCR PO SCH (21:00)
== END 2024-06-26 14:54 | disposition home or self-care (01) | DRG 291 ==
LOC: ER 00:33 → ICUE 04:43 → ERHOLD 04:43 → ICUE 10:31 → PCU 06-26 02:18
PROVIDERS: Emergency Medicine; Internal Medicine; Student in an Organized Health Care Education/Training Program; ADMIT Internal Medicine
PROC: 5A09357 Assistance with Respiratory Ventilation, Less than 24 Consecutive Hours, Continuous Positive Airway Pressure (ICD-10-PCS; principal; 2024-06-25)
DX: I50.31 Acute diastolic (congestive) heart failure (principal); J96.01 Acute respiratory failure with hypoxia; I48.92 Unspecified atrial flutter; C34.90 Malignant neoplasm of unspecified part of unspecified bronchus or lung; J44.1 Chronic obstructive pulmonary disease with (acute) exacerbation; I47.10 Supraventricular tachycardia, unspecified; E87.20 Acidosis, unspecified; Z66 Do not resuscitate; Z79.82 Long term (current) use of aspirin; Z79.02 Long term (current) use of antithrombotics/antiplatelets; I25.10 Atherosclerotic heart disease of native coronary artery without angina pectoris; I25.2 Old myocardial infarction; I48.0 Paroxysmal atrial fibrillation; E78.00 Pure hypercholesterolemia, unspecified; Z86.73 Personal history of transient ischemic attack (TIA), and cerebral infarction without residual deficits; Z90.49 Acquired absence of other specified parts of digestive tract; Z98.890 Other specified postprocedural states; Z79.899 Other long term (current) drug therapy; Z87.891 Personal history of nicotine dependence; I27.20 Pulmonary hypertension, unspecified; Z95.5 Presence of coronary angioplasty implant and graft
CPT/HCPCS: 0241U; 36415; 71045; 71260; 80053; 82803; 83605; 83690; 83735; 83880; 84100; 84145; 84443; 84484; 85025; 85610; 85730; 93005; 93010; 93306; 94640; 94660; 94664; 94762; 96365; 96367; 99285-25; A9270; J0282; J0456; J0696; J1160; J1940; J2919; J3475; J7050; J7060; Q9967

== ENCOUNTER 2025-01-13 08:47 | Day surgery (SDC) | payer OTHER ==
[~2025-01-13] VITALS: Ht 180.3 cm; Wt 86.0 kg
[~2025-01-13 08:47] MED LIST changes: +CEFD300 PO; +ELIQUIS5 M2 PO; +FURO20 PO; +IPRAT-ALBUT 0.5-3 ML INH; +METO50ER PO; +POTA10T PO; +PRED20 PO; +SPIRIVA RESPIMAT4 G3 INH; +TIOT18; +[UNRECOGNIZED DRUG - OTHER]
[2025-01-13 09:30] VITALS: BP 98/74
[2025-01-13] MEDS ORDERED: NS 1,000 ML IV ONE ×2 (10:47→10:50)
[2025-01-13] MEDS ORDERED: NS 250 ML IV ONE (10:47)
[2025-01-13] MEDS ORDERED: Heparin Sodium 1000 Units/ML 10ML MDV ONE ×2 (10:47→10:49)
[2025-01-13] MEDS ORDERED: Nitroglycerin 2 MG/20 ML BTL ONE (10:48)
[2025-01-13] MEDS ORDERED: Midazolam HCl 1MG / ML 2ML Vial ONE ×2 (11:05→11:29)
[2025-01-13] MEDS ORDERED: FentaNYL Citrate 50 MCG/ML 2 ML Injection ONE ×3 (11:05→11:50)
[2025-01-13] MEDS ORDERED: Verapamil HCL 2.5 MG/ML 2ML Injection ONE (11:27)
[2025-01-13 13:15] VITALS: BP 146/94
[2025-01-13 13:30] VITALS: BP 152/94
[2025-01-13 14:00] VITALS: BP 138/88
[2025-01-13 14:30] VITALS: BP 134/89
--- NOTE | 2025-01-13 15:05 | NUR ---
PATIENT RETURNED EARLIER FROM COIL MACHINE SUPERVISOR, SITE INTACT, NO ACUTE CONCERNS, VSS, PULSES NOTED, SOME PRESSURE APPLIED TO POSSIBLE SMALL HEMATOMA, NO HEMATOMA ON FURTHER ASSESSMENT NOTED. SITE MONITORED, PATIENT SLEPT, LATER AWOKE GIVEN FOOD AND FLUIDS, DISCUSSED D/C INSTRUCTIONS, RESUMING MEDICATIONS, FEMORAL SITE CARE, NO CONCERNS OR QUESTIONS, IV REMOVED AND PATIENT DRESSED, TAKEN BY THIS RN TO MAIN ENTRANCE MET AND LEFT AT 1505. NO CONCERNS AT TIME OF DISCHARGE.
== END 2025-01-13 15:05 | disposition home or self-care (01) ==
LOC: MHTC 08:47
DX: I73.9 Peripheral vascular disease, unspecified (principal); I77.1 Stricture of artery; I25.10 Atherosclerotic heart disease of native coronary artery without angina pectoris; J44.9 Chronic obstructive pulmonary disease, unspecified; I10 Essential (primary) hypertension; Z95.5 Presence of coronary angioplasty implant and graft; Z87.891 Personal history of nicotine dependence; Z79.01 Long term (current) use of anticoagulants; Z79.899 Other long term (current) drug therapy
CPT/HCPCS: 76937; 93005; 93010; 99152; 99153; C1725; C1760; C1769; C1874; C1887; C1894; J1644; J2250; J3010; J7030; J7050; Q9967